=== PATIENT | female | born 1995 | race Caucasian/White ===

== ENCOUNTER 2018-06-20 18:25 | Emergency (ER) | payer MEDICAID, OTHER ==
--- NOTE | 2018-06-21 07:55 | UC ---
Discharge - Sign-Out/Discharge Documenting (check all that apply): Post-Discharge Follow Up All imaging exams completed and their final reports reviewed: No Studies - Discharge Plan Condition: Stable Disposition: LEFT WITHOUT BEING SEEN Referrals: No Primary Care Phys,NOPCP [Primary Care Provider] - - Billing Disposition and Condition Condition: STABLE Disposition: Left Without Being Seen
== END 2018-06-20 18:56 | disposition left against medical advice (07) ==
LOC: UCCORT 18:25
DX: Z53.21 Procedure and treatment not carried out due to patient leaving prior to being seen by health care provider (principal)

== ENCOUNTER 2018-10-08 12:47 | Emergency (ER) | payer OTHER ==
[2018-10-08 14:06] VITALS: BP 114/68
--- NOTE | 2018-10-08 14:27 | UC ---
Lower Extremity/Ankle HPI - HPI Summary HPI Summary: 23 yo female with painful left great toe (plantar aspect) x a month or two worse past week pt assume it was a callouse bumped it in the shower today and it drained pus no FB sensation - History of Current Complaint Chief Complaint: UCLowerExtremity Stated Complaint: LT BIG TOE COMPLAINT Time Seen by Provider: 10/08/18 14:25 Hx Obtained From: Patient Hx Last Menstrual Period: 10/02/18 Onset/Duration: Gradual Onset, Lasting Weeks Severity Initially: Mild Severity Currently: Mild Pain Intensity: 3 Pain Scale Used: 0-10 Numeric Aggravating Factor(s): Standing, Ambulation Alleviating Factor(s): Rest, Elevation Feet (Multiple View): 1 - callouse /red base/no pus - Allergies/Home Medications Allergies/Adverse Reactions: Allergies Allergy/AdvReac Type Severity Reaction Status Date / Time No Known Allergies Allergy Verified 10/08/18 14:01 Home Medications: Home Medications ALPRAZolam [Xanax] 1 mg PO Q6HR PRN 10/08/18 [History Confirmed 10/08/18] Bupropion XL* [Wellbutrin XL *] 150 mg PO DAILY 10/08/18 [History Confirmed ] Cholecalciferol TAB* [Vitamin D TAB*] 400 unit PO DAILY 10/08/18 [History Confirmed 10/08/18] Copper (Iud) [Paragard IUD] 1 unit INTRAUTERI ONCE 10/08/18 [History Confirmed 10/08/18] Multivitamins/Minerals TAB* [Theragran/minerals TAB*] 1 tab PO DAILY 10/08/18 [ History Confirmed 10/08/18] PMH/Surg Hx/FS Hx/Imm Hx Previously Healthy: Yes GI/ History: Other Other GI/ History: IBS - Surgical History Surgical History: Yes Surgery Procedure, Year, and Place: tonsillectomy. colonoscopy - Family History Known Family History: Positive: Hypertension Negative: Cardiac Disease, Diabetes - Social History Alcohol Use: Occasionally Substance Use Type: None Smoking Status (MU): Light Every Day Tobacco Smoker Type: Cigarettes Amount Used/How Often: 3 cigarettes daily Review of Systems All Other Systems Reviewed And Are Negative: Yes Constitutional: Positive: Negative Skin: Positive: Negative Eyes: Positive: Negative ENT: Positive: Negative Respiratory: Positive: Negative Cardiovascular: Positive: Negative Gastrointestinal: Positive: Negative Genitourinary: Positive: Negative Motor: Positive: Negative Neurovascular: Positive: Negative Musculoskeletal: Positive: Negative Neurological: Positive: Negative Psychological: Positive: Negative Physical Exam Triage Information Reviewed: Yes Appearance: Well-Appearing, No Pain Distress, Well-Nourished Vital Signs: Initial Vital Signs Temp 98.3 F 10/08/18 14:00 Pulse 81 10/08/18 14:00 Resp 15 10/08/18 14:00 BP 114/68 10/08/18 14:00 Pulse Ox 100 10/08/18 14:00 Vital Signs Reviewed: Yes Eyes: Positive: Conjunctiva Clear ENT: Positive: Hearing grossly normal. Negative: Pharyngeal erythema, Nasal congestion, Nasal drainage, Trismus, Muffled voice, Hoarse voice Neck: Positive: Supple Respiratory: Positive: Lungs clear, Normal breath sounds, No respiratory distress, No accessory muscle use Cardiovascular: Positive: RRR, No Murmur Musculoskeletal: Positive: ROM Intact, No Edema Neurological: Positive: Alert Psychological Exam: Normal Skin Exam: Other - callouse plantar aspect left great toe/appear as though part of callouse has be torn off and possible infection. no pus.not fluctuant Lower Extremity Course/Dx - Differential Dx/Diagnosis Provider Diagnosis: Callus of foot, Infection of left foot Discharge - Sign-Out/Discharge Documenting (check all that apply): Patient Departure All imaging exams completed and their final reports reviewed: No Studies - Discharge Plan Condition: Stable Disposition: HOME Prescriptions: Cephalexin CAP* [Keflex CAP*] 500 mg PO QID #28 cap Patient Education Materials: Warm Compress or Soak (ED) Referrals: Jazlyn Jane MD [Primary Care Provider] - 3 Days (if not improving) Additional Instructions: recheck for new or worsening symptoms or if not improving in a few days - Billing Disposition and Condition Condition: STABLE Disposition: Home
== END 2018-10-08 14:44 | disposition home or self-care (01) ==
LOC: UCCORT 12:47
DX: L84 Corns and callosities (principal); L08.9 Local infection of the skin and subcutaneous tissue, unspecified; K58.9 Irritable bowel syndrome, unspecified; F17.210 Nicotine dependence, cigarettes, uncomplicated
CPT/HCPCS: 99212; G0463